=== PATIENT | female | born 1955 | race Caucasian/White ===

== ENCOUNTER → 2017-03-16 | Outpatient (CLI) | payer BC ==
[~2017-03-16] MED LIST: ALMO1TAB PO; AMLO2.5T PO; AMT25 PO; ASPI-435 PO; ATV5X PO; CHOL2000 PO; ERGO500037 PO; ESOM1CAP34 PO; FLNIN/ NAE; LACT1CAP6 PO; LEVO25TA PO; LPT10 PO; MAGN500T15 PO; MECL1TAB40 PO; NXM/40 PO; ONDA4TAB10 UT; SYN50 PO; TOPI50TA24 PO; TRIA37.5 PO; ZLF/50 PO; ZOLP5TAB PO; [UNRECOGNIZED DRUG - CODE] PO
[2017-03-16 08:19] LABS: HEMATOCRIT 44.3 % (37-47); MEAN CELL VOLUME 86.5 fL (80-100); MEAN CORPUSCULAR HEMOGLOBIN 29.5 pg (25-34); MEAN CORPUSCULAR HGB CONC 34.1 g/dl (32-36); MEAN PLATELET VOLUME 8.5 fL (7.4-10.4); PLATELET COUNT 104 K/uL (130-400); RED BLOOD COUNT 5.12 M/uL (4.2-5.4); WHITE BLOOD COUNT 3.92 K/uL (4.8-10.8)
[2017-03-16 08:50] LABS: ALT/SGPT 26 U/L (12-78); BLOOD UREA NITROGEN 15 mg/dl (7-18); BUN/CREATININE RATIO 17.2 (10-20); CARBON DIOXIDE 34 mmol/L (21-32); CHLORIDE 103 mmol/L (98-107); CHOLESTEROL 175 mg/dl (0-200); CREATININE 0.88 mg/dl (0.60-1.20); GLUCOSE 95 mg/dl (70-99); POTASSIUM 3.9 mmol/L (3.5-5.1); SODIUM 141 mmol/L (136-145); TRIGLYCERIDES 80 mg/dl (0-150); VERY LOW DENSITY LIPOPROT CALC 16 mg/dl
[2017-03-16 08:56] LABS: CALCIUM 8.5 mg/dl (8.5-10.1)
[2017-03-16 09:00] LABS: ALB/GLOB RATIO 1.2 (0.9-2); ALKALINE PHOSPHATASE 117 U/L (45-117); AST/SGOT 21 U/L (15-37); CHOLESTEROL/HDL RATIO 2.1; HDL CHOLESTEROL 84 mg/dl; LDL CHOLESTEROL CALCULATED 75 mg/dl
== END | disposition home or self-care (01) ==
LOC: C.LAB 07:58
PROVIDERS: ATTEND Internal Medicine
DX: E78.5 Hyperlipidemia, unspecified (principal); I10 Essential (primary) hypertension; K21.9 Gastro-esophageal reflux disease without esophagitis; E03.9 Hypothyroidism, unspecified

== ENCOUNTER → 2017-05-21 | Outpatient (CLI) | payer BC ==
[2017-05-21 16:38] LABS: HEMATOCRIT 41.9 % (37-47); MEAN CELL VOLUME 84.8 fL (80-100); MEAN CORPUSCULAR HEMOGLOBIN 29.8 pg (25-34); MEAN CORPUSCULAR HGB CONC 35.1 g/dl (32-36); RED BLOOD COUNT 4.94 M/uL (4.2-5.4); WHITE BLOOD COUNT 2.44 K/uL (4.8-10.8)
[2017-05-21 17:05] LABS: MEAN PLATELET VOLUME 8.9 fL (7.4-10.4); PLATELET COUNT 99 K/uL (130-400)
[2017-05-21 17:41] LABS: BASO % 1.6 %; BASO ABS # 0.04 K/uL (0-0.2); COMPLETE YES; EOS % 2.9 %; IG% 0.4 %; LYMPH % 41.4 %; LYMPH ABS # 1.01 K/uL (1.2-3.4); MONO % 9.8 %; NEUT % 43.9 %
[2017-05-21 19:36] LABS: LYME DISEASE AB IGG NEG (NEG); LYME DISEASE AB IGM NEG (NEG)
[2017-05-28 18:21] LABS: ANTI-68 kd Ag (HSP-70 Ab) NEGATIVE (NEGATIVE)
== END | disposition home or self-care (01) ==
LOC: C.LAB 15:05
PROVIDERS: ATTEND Physician Assistant
DX: H91.22 Sudden idiopathic hearing loss, left ear (principal)

== ENCOUNTER → 2017-05-30 | Outpatient (CLI) | payer BC ==
[~2017-05-30] MED LIST changes: +GADAVIST IV PRN
--- NOTE | 2017-05-30 15:46 | DIAGNOSTIC IMAGING REPORT ---
BRAIN COMBO FOR IAC CLINICAL HISTORY: Acute left sided sensorineural hearing loss. COMPARISON STUDY: No previous studies for comparison. TECHNIQUE: Utilizing 1.5 Luba magnet and dedicated coil, multiplanar, multi echo imaging of the brain was performed pre and postcontrast administration with thin cut imaging through the internal auditory canals. Injection of 7.5 cc of Gadavist IV was uneventful. FINDINGS: There are no areas of restricted diffusion. No acute intracranial hemorrhage, midline shift or mass effect is present. Brain volume is normal. Ventricular system is normal. Basilar cisterns are patent. There are no extra-axial collections. Flow-voids for the major intracranial vessels are present. There is no intracranial mass or pathologic enhancement. No abnormalities are identified within the internal auditory canals. Semicircular canals are intact. There is no fluid within the mastoid air cells. A punctate focus of signal abnormality within the left temporal lobe is of doubtful significance. Calvarial signal is maintained. Orbits and sinuses are unremarkable. IMPRESSION: Unremarkable MRI of the brain and internal auditory canals. Electronically signed by: Michael Echevarria M.D. 05/30/2017 3:45 PM Dictated Date/Time: 05/30/2017 3:38 PM
== END | disposition home or self-care (01) ==
LOC: C.MRIBC 13:03
PROVIDERS: ATTEND Physician Assistant
DX: H91.22 Sudden idiopathic hearing loss, left ear (principal)

== ENCOUNTER → 2017-06-01 | Outpatient (CLI) | payer BC ==
[~2017-06-01] MED LIST changes: -GADAVIST IV PRN
== END | disposition home or self-care (01) ==
LOC: C.LAB 13:58
PROVIDERS: ATTEND Internal Medicine
DX: Z00.00 Encounter for general adult medical examination without abnormal findings (principal); D69.6 Thrombocytopenia, unspecified; Z11.59 Encounter for screening for other viral diseases

== ENCOUNTER 2017-06-03 16:08 | Emergency (ER) | payer BC ==
[~2017-06-03] VITALS: Ht 160 cm; Wt 78.7 kg
[~2017-06-03 16:08] MED LIST changes: -AMT25 PO; -ATV5X PO; -CHOL2000 PO; -ESOM1CAP34 PO; -FLNIN/ NAE; -LPT10 PO; -MECL1TAB40 PO; -ONDA4TAB10 UT; -SYN50 PO; -TRIA37.5 PO; -ZLF/50 PO; -[UNRECOGNIZED DRUG - CODE] PO
[2017-06-03] MEDS ORDERED: SODIUM CHLORIDE 0.9% 1000ML 1,000 ML IV STA (16:58)
--- NOTE | 2017-06-03 17:02 | EMERGENCY ROOM VISIT NOTE ---
History Report prepared by Vivek: Chucky Jean Under the Supervision of: Dr. Kunal Polo M.D. First contact with patient: 16:48 Chief Complaint: ILLNESS Stated Complaint: WHOOZY,SHAKY,RACING HEART,HIGH BP History of Present Illness The patient is a 61 year old female who presents to the Emergency Room with complaints of malaise that began a couple of days ago. The patient recently finished a course of Prednisone for a cochlear issue. She started taking Hydrochlorothiazide 2 days ago as well. She was tested for Lyme disease 1 week ago which was negative. She describes her malaise as everything being in slow motion and feeling weak. She experienced palpitations today with a blood pressure of 170/104. She has a history of a low platelet condition and saw her [employer] 3 years ago who diagnosed her with fibromyalgia. She denies any abdominal pain. Source of History: patient Onset: a couple of days ago Position: other (global) Symptom Intensity: moderate Quality: other (Malaise) Timing: constant Associated Symptoms: + weakness, No abdominal pain Review of Systems See HPI for pertinent positives & negatives. A total of 10 systems reviewed and were otherwise negative. Past Medical & Surgical Medical Problems: (1) Fibromyalgia Family History Omitted secondary to the patient's age. Social History Smoking Status: Never Smoker Smokeless Tobacco Use: No Drug Use: none Marital Status: Housing Status: lives with significant other Occupation Status: retired Current/Historical Medications Scheduled Amitriptyline HCl (Amitriptyline HCl), 25 MG PO HS Amlodipine Besylate (Norvasc), 2.5 MG PO QAM Aspirin (Aspirin 81), 81 MG PO QAM Atorvastatin (Atorvastatin Calcium), 10 MG PO 5XWK Cholecalciferol (Vitamin D3), 2,000 INTER.UNIT PO DAILY Esomeprazole Magnesium (Esomeprazole Magnesium), 40 MG PO HS Levothyroxine Sodium (Synthroid), 50 MCG PO DAILY Magnesium (Magnesium), 500 MG PO QAM Sertraline HCl (Sertraline HCl), 50 MG PO HS Triamterene/Hctz (Dyazide 37.5MG/25MG), 1 CAP PO DAILY Scheduled PRN Almotriptan Malate (Almotriptan), 12.5 MG PO UD PRN for Migraine Fluticasone Propionate (Fluticasone Propionate), 1 SPRAY LAZARO BID PRN for Allergy Symptoms Lorazepam (Lorazepam), 0.5 MG PO Q6H PRN for Anxiety Meclizine HCl (Meclizine HCl), 12.5-25 MG PO Q8 PRN for Dizziness or Vertigo Ondasetron Odt (Zofran Odt), 4 MG UT Q8 PRN for Nausea Allergies Coded Allergies: Gabapentin (Verified Allergy, Intermediate, twitching, 06/03/17) Codeine (Verified Allergy, Mild, gets very sick, 06/03/17) Physical Exam Vital Signs Date Time Temp Pulse Resp B/P (MAP) Pulse Ox O2 Delivery O2 Flow Rate FiO2 06/03/17 20:07 36.7 68 18 156/93 97 06/03/17 19:10 68 20 179/90 97 Room Air 06/03/17 19:07 97 Room Air 06/03/17 16:10 36.7 75 18 173/95 97 Room Air Physical Exam GENERAL: Patient is a healthy-appearing well-nourished female HEAD: Normocephalic atraumatic EYES: Ocular movements intact pupils equal and react to light OROPHARYNX mucous membranes are moist no exudates present no erythema or edema present NECK: Supple no nuchal rigidity CHEST: Good equal expansion LUNGS: Clear and equal to auscultation CARDIAC: Normal S1 and S2 ABDOMEN: Soft nontender no guarding BACK: No CVA tenderness EXTREMITIES: No pain upon palpation normal muscle strength in all groups no clubbing cyanosis or edema NEURO: Patient is following commands and answering questions appropriately. Alert and oriented x3 Cranial Nerves 2-12 grossly intact Medical Decision & Procedures ER Provider Diagnostic Interpretation: Radiology results as stated below per my review and radiologist interpretation: CHEST ONE VIEW PORTABLE HISTORY: 61 years-old Female Pt c/o gen weakness COMPARISON: None available TECHNIQUE: Portable upright AP view of the chest FINDINGS: Cardiac silhouette is within normal limits. No pneumothorax, pleural effusion, focal airspace consolidation or overt pulmonary edema. The bones appear grossly intact. IMPRESSION: No acute cardiopulmonary process. The above report was generated using voice recognition software. It may contain grammatical, syntax or spelling errors. Electronically signed by: Cj Montaño M.D. 06/03/2017 5:29 PM Dictated Date/Time: 06/03/2017 5:29 PM Laboratory Results 06/03/17 17:15 Red Blood Count 5.38, Mean Corpuscular Volume 85.5, Mean Corpuscular Hemoglobin 29.4, Mean Corpuscular Hemoglobin Concent 34.3, Mean Platelet Volume 8.2, Neutrophils (%) (Auto) 52.1, Lymphocytes (%) (Auto) 38.2, Monocytes (%) (Auto) 7.5, Eosinophils (%) (Auto) 1.7, Basophils (%) (Auto) 0.1, Neutrophils # (Auto) 3.76, Lymphocytes # (Auto) 2.76, Monocytes # (Auto) 0.54, Eosinophils # (Auto) 0.12, Basophils # (Auto) 0.01 06/03/17 17:15 Test 06/03/17 17:15 06/03/17 19:00 White Blood Count 7.22 K/uL (4.8-10.8) Red Blood Count 5.38 M/uL (4.2-5.4) Hemoglobin 15.8 g/dL (12.0-16.0) Hematocrit 46.0 % (37-47) Mean Corpuscular Volume 85.5 fL (80-100) Mean Corpuscular Hemoglobin 29.4 pg (25-34) Mean Corpuscular Hemoglobin Concent 34.3 g/dl (32-36) Platelet Count 107 K/uL (130-400) Mean Platelet Volume 8.2 fL (7.4-10.4) Neutrophils (%) (Auto) 52.1 % Lymphocytes (%) (Auto) 38.2 % Monocytes (%) (Auto) 7.5 % Eosinophils (%) (Auto) 1.7 % Basophils (%) (Auto) 0.1 % Neutrophils # (Auto) 3.76 K/uL (1.4-6.5) Lymphocytes # (Auto) 2.76 K/uL (1.2-3.4) Monocytes # (Auto) 0.54 K/uL (0.11-0.59) Eosinophils # (Auto) 0.12 K/uL (0-0.5) Basophils # (Auto) 0.01 K/uL (0-0.2) RDW Standard Deviation 39.6 fL (36.4-46.3) RDW Coefficient of Variation 12.7 % (11.5-14.5) Immature Granulocyte % (Auto) 0.4 % Immature Granulocyte # (Auto) 0.03 K/uL (0.00-0.02) Anion Gap 7.0 mmol/L (3-11) Est Creatinine Clear Calc Drug Dose 64.5 ml/min Estimated GFR () 78.9 Estimated GFR (Non- 68.1 BUN/Creatinine Ratio 17.0 (10-20) Calcium Level 9.0 mg/dl (8.5-10.1) Magnesium Level 2.1 mg/dl (1.8-2.4) Total Bilirubin 0.6 mg/dl (0.2-1) Direct Bilirubin 0.2 mg/dl (0-0.2) Aspartate Amino Transf (AST/SGOT) 19 U/L (15-37) Alanine Aminotransferase (ALT/SGPT) 34 U/L (12-78) Alkaline Phosphatase 145 U/L (45-117) Total Creatine Kinase 117 U/L (26-192) Creatine Kinase MB 2.2 ng/ml (0.5-3.6) Creatine Kinase MB Ratio 1.9 (0-3.0) Troponin I < 0.015 ng/ml (0-0.045) Total Protein 6.6 gm/dl (6.4-8.2) Albumin 3.6 gm/dl (3.4-5.0) Thyroid Stimulating Hormone (TSH) 2.440 uIu/ml (0.300-4.500) Monoscreen NEG (NEG) Urine Color YELLOW Urine Appearance CLEAR (CLEAR) Urine pH 7.5 (4.5-7.5) Urine Specific [place] 1.012 (1.000-1.030) Urine Protein NEG (NEG) Urine Glucose (UA) NEG (NEG) Urine Ketones NEG (NEG) Urine Occult Blood NEG (NEG) Urine Nitrite NEG (NEG) Urine Bilirubin NEG (NEG) Urine Urobilinogen NEG (NEG) Urine Leukocyte Esterase NEG (NEG) Urine Random Sodium 17 mEq/L Urine Random Potassium 13.5 mEq/L Urine Random Chloride 20 mEq/L Labs reviewed by ED physician. Medications Administered Medications (Trade) Dose Ordered Sig/Rip Route Start Time Stop Time Status Last Admin Dose Admin Sodium Chloride 1,000 ml @ 999 mls/hr Q1H1M STAT IV 06/03/17 16:58 06/03/17 17:58 DC 06/03/17 16:58 999 MLS/HR Potassium Chloride (Klor-Con M10) 80 meq NOW STAT PO 06/03/17 17:51 06/03/17 17:52 DC 06/03/17 19:05 80 MEQ ECG Indication: weakness Rate (beats per minute): 64 Rhythm: normal sinus Findings: no acute ischemic change, no ectopy ED Course 1648: Past medical records reviewed. The patient was evaluated in room B7. A complete history and physical examination was performed. 1658: Ordered Sodium Chloride 1000 ml @ 999 mls/hr IV 1751: Ordered Potassium Chloride 80 meq PO 1909: Upon reexamination the patient is resting. I discussed results and treatment plan with the patient. She verbalizes agreement and understanding. The patient is ready for discharge. Medical Decision Differential diagnosis: Etiologies such as metabolic, infection, hypo/hyperglycemia, electrolyte abnormalities, cardiac sources, intracerebral event, toxicologic, neurologic, as well as others were entertained. This is a 61-year-old female who presents emergency department complaining of generalized weakness. The patient has a hypochloremic metabolic alkalosis on laboratory work. In addition she also is hypertensive and has hypokalemia. I believe these findings are all explained by starting hydrochlorothiazide 3 days ago. The patient's potassium was repleted in the emergency department and I stressed the need to stop the hydrochlorothiazide to the patient. I also discussed these findings with the pharmacist who agreed. I believe this also explains the patient's symptoms. Patient was in agreement with the treatment plan. Medication Reconcilliation Current Medication List: was personally reviewed by me Blood Pressure Screening Patient's blood pressure: Elevated blood pressure Blood pressure disposition: Referred to PCP Impression Primary Impression: Hydrochlorothiazide adverse reaction Additional Impression: Hypokalemia Scribe Attestation The scribe's documentation has been prepared under my direction and personally reviewed by me in its entirety. I confirm that the note above accurately reflects all work, treatment, procedures, and medical decision making performed by me. Departure Information Dispostion Home / Self-Care Referrals Kell Echevarria M.D. (PCP) Forms HOME CARE DOCUMENTATION FORM, IMPORTANT VISIT INFORMATION, WORK / SCHOOL INSTRUCTIONS Patient Instructions Chloride Urine, My [facility] [email or web address] Additional Instructions STOP taking hydrochlorothiazide Follow-up with Dr Echevarria's office You were found to have an elevated blood pressure today (>120 sytolic or >90 diastolic). Per medicare guidelines, you need to follow up with this blood pressure screening with your Primary Care Physician (PCP). For a new PCP call [phone]. You have been examined and treated today on an emergency basis only. This is not a substitute for, or an effort to provide, complete comprehensive medical care. It is impossible to recognize and treat all injuries or illnesses in a single emergency department visit. It is therefore important that you follow up closely with Dr Echevarria. Call as soon as possible for an appointment. Thank you for your time and consideration. I look forward to speaking with you again soon. Please don't hesitate to call us if you have any questions. Problem Qualifiers Primary Impression: Hydrochlorothiazide adverse reaction Encounter type: initial encounter Qualified Codes: T50.2X5A - Adverse effect of carbonic-anhydrase inhibitors, benzothiadiazides and other diuretics, initial encounter
[2017-06-03 17:29] LABS: BASO % 0.1 %; BASO ABS # 0.01 K/uL (0-0.2); COMPLETE YES; EOS % 1.7 %; IG% 0.4 %; LYMPH % 38.2 %; LYMPH ABS # 2.76 K/uL (1.2-3.4); MEAN CELL VOLUME 85.5 fL (80-100); MEAN CORPUSCULAR HEMOGLOBIN 29.4 pg (25-34); MEAN CORPUSCULAR HGB CONC 34.3 g/dl (32-36); MEAN PLATELET VOLUME 8.2 fL (7.4-10.4); MONO % 7.5 %; NEUT % 52.1 %; PLATELET COUNT 107 K/uL (130-400); RED BLOOD COUNT 5.38 M/uL (4.2-5.4); WHITE BLOOD COUNT 7.22 K/uL (4.8-10.8)
--- NOTE | 2017-06-03 17:31 | DIAGNOSTIC IMAGING REPORT ---
CHEST ONE VIEW PORTABLE HISTORY: 61 years-old Female Pt c/o gen weakness COMPARISON: None available TECHNIQUE: Portable upright AP view of the chest FINDINGS: Cardiac silhouette is within normal limits. No pneumothorax, pleural effusion, focal airspace consolidation or overt pulmonary edema. The bones appear grossly intact. IMPRESSION: No acute cardiopulmonary process. The above report was generated using voice recognition software. It may contain grammatical, syntax or spelling errors. Electronically signed by: Cj Montaño M.D. 06/03/2017 5:29 PM Dictated Date/Time: 06/03/2017 5:29 PM
[2017-06-03 17:46] LABS: ALT/SGPT 34 U/L (12-78); BLOOD UREA NITROGEN 16 mg/dl (7-18); CARBON DIOXIDE 34 mmol/L (21-32); CHLORIDE 90 mmol/L (98-107); CREATININE 0.91 mg/dl (0.60-1.20); GLUCOSE 93 mg/dl (70-99); MAGNESIUM 2.1 mg/dl (1.8-2.4); SODIUM 131 mmol/L (136-145)
[2017-06-03] MEDS ORDERED: POTASSIUM CHLORIDE 10 MEQ TABCR PO STA (17:51)
[2017-06-03 17:57] LABS: ALKALINE PHOSPHATASE 145 U/L (45-117); AST/SGOT 19 U/L (15-37); CKMB/CK RATIO 1.9 (0-3.0)
[2017-06-03] MEDS ORDERED: ONDA4TAB10 UT (17:58)
[2017-06-03] MEDS ORDERED: ATV5X PO (17:58)
[2017-06-03] MEDS ORDERED: FLNIN/ NAE (17:58)
[2017-06-03] MEDS ORDERED: [UNRECOGNIZED DRUG - CODE] PO (17:58)
[2017-06-03] MEDS ORDERED: SYN50 PO (17:58)
[2017-06-03] MEDS ORDERED: TRIA37.5 PO (17:58)
[2017-06-03] MEDS ORDERED: MECL1TAB40 PO (17:58)
[2017-06-03] MEDS ORDERED: ESOM1CAP34 PO (17:58)
[2017-06-03] MEDS ORDERED: LPT10 PO (17:58)
[2017-06-03] MEDS ORDERED: ZLF/50 PO (17:58)
[2017-06-03] MEDS ORDERED: AMT25 PO (17:58)
[2017-06-03] MEDS ORDERED: CHOL2000 PO (18:00)
[2017-06-03 19:07] VITALS: O2SAT 97; Ht 160 cm; Wt 78.7 kg
[2017-06-03 19:30] LABS: URINE APPEARANCE CLEAR (CLEAR); URINE BILIRUBIN NEG (NEG); URINE COLOR YELLOW; URINE NITRITE NEG (NEG); URINE PH 7.5 (4.5-7.5); URINE SPECIFIC GRAVITY 1.012 (1.000-1.030); UROBILINOGEN NEG (NEG); ZZUR CULT IF INDIC CLEAN CATCH NO
[2017-06-03 19:34] LABS: MANUAL MICROSCOPIC REQUIRED? NO; REVIEW REQ? NO
[2017-06-03 20:07] VITALS: BP 156/93; PULSE 68; TEMP 36.7; O2SAT 97
[2017-06-13 23:33] LABS: EBV EARLY ANTIGEN AB >150.00 U/ML; EHRLICHIA CHAFF IGG AB <1:64 (<1:64); EHRLICHIA CHAFF IGM AB <1:20 (<1:20)
== END 2017-06-03 20:08 | disposition home or self-care (01) ==
LOC: C.EDB 16:09
DX: E87.6 Hypokalemia (principal); T50.2X5A Adverse effect of carbonic-anhydrase inhibitors, benzothiadiazides and other diuretics, initial encounter; E87.3 Alkalosis; R53.81 Other malaise; M79.7 Fibromyalgia; Z79.82 Long term (current) use of aspirin; Z79.899 Other long term (current) drug therapy; I10 Essential (primary) hypertension

== ENCOUNTER → 2017-06-21 | Outpatient (CLI) | payer BC ==
[~2017-06-21] MED LIST changes: -ALMO1TAB PO; +AMT25 PO; +ATV5X PO; +CHOL2000 PO; -ERGO500037 PO; +ESOM1CAP34 PO; +FLNIN/ NAE; -LACT1CAP6 PO; -LEVO25TA PO; +LPT10 PO; +MECL1TAB40 PO; -NXM/40 PO; +ONDA4TAB10 UT; +SYN50 PO; -TOPI50TA24 PO; +TRIA37.5 PO; +ZLF/50 PO; -ZOLP5TAB PO; +[UNRECOGNIZED DRUG - CODE] PO
[2017-06-21 15:08] LABS: BLOOD UREA NITROGEN 12 mg/dl (7-18); C-REACTIVE PROTEIN < 0.29 mg/dl (0-0.29); CALCIUM 8.8 mg/dl (8.5-10.1); CARBON DIOXIDE 34 mmol/L (21-32); CHLORIDE 100 mmol/L (98-107); CREATININE 0.82 mg/dl (0.60-1.20); GLUCOSE 74 mg/dl (70-99); POTASSIUM 3.8 mmol/L (3.5-5.1); SODIUM 137 mmol/L (136-145)
== END | disposition home or self-care (01) ==
LOC: C.LAB 12:49
PROVIDERS: ATTEND Internal Medicine
DX: I10 Essential (primary) hypertension (principal); R21 Rash and other nonspecific skin eruption; H81.09 Meniere's disease, unspecified ear; D69.2 Other nonthrombocytopenic purpura

== ENCOUNTER → 2017-06-27 | Outpatient (CLI) | payer BC ==
[2017-06-27 16:39] LABS: URINE APPEARANCE CLEAR (CLEAR); URINE BILIRUBIN NEG (NEG); URINE COLOR YELLOW; URINE NITRITE NEG (NEG); URINE SPECIFIC GRAVITY 1.013 (1.000-1.030); UROBILINOGEN NEG (NEG)
[2017-06-27 16:41] LABS: MANUAL MICROSCOPIC REQUIRED? NO; REVIEW REQ? YES
[2017-06-27 16:50] LABS: URINE EPITHELIAL CELL AUTO 0-5 /lpf (0-5)
[2017-06-27 17:09] LABS: RHEUMATOID FACTOR < 10.0 U/mL (0-15); TOTAL IRON BINDING CAPACITY 410 mcg/dl (250-450)
[2017-07-03 02:34] LABS: ANTI-CENTROMERE AB <1.0 NEG AI (<1.0 NEG); ANTI-SS-A <1.0 NEG AI (<1.0 NEG); ANTI-SS-B <1.0 NEG AI (<1.0 NEG); DNA ds CRITHIDIA NEGATIVE (NEGATIVE); MICROSOMAL AB 2 IU/ML (<9); PARVOVIRUS IgG INDEX 7.4 (<0.9); PARVOVIRUS IgM INDEX 0.2 (<0.9); Sm Antibody <1.0 NEG AI (<1.0 NEG)
== END | disposition home or self-care (01) ==
LOC: C.LAB1850 15:43
PROVIDERS: ATTEND Internal Medicine Rheumatology
DX: R21 Rash and other nonspecific skin eruption (principal); M19.90 Unspecified osteoarthritis, unspecified site; H90.42 Sensorineural hearing loss, unilateral, left ear, with unrestricted hearing on the contralateral side; M79.642 Pain in left hand

== ENCOUNTER → 2017-07-18 | Outpatient (CLI) | payer BC ==
[2017-07-18 17:28] LABS: BLOOD UREA NITROGEN 16 mg/dl (7-18); BUN/CREATININE RATIO 16.6 (10-20); CALCIUM 8.7 mg/dl (8.5-10.1); CARBON DIOXIDE 31 mmol/L (21-32); CHLORIDE 103 mmol/L (98-107); CREATININE 0.97 mg/dl (0.60-1.20); GLUCOSE 91 mg/dl (70-99); POTASSIUM 3.8 mmol/L (3.5-5.1); SODIUM 140 mmol/L (136-145)
== END | disposition home or self-care (01) ==
LOC: C.LAB 15:37
PROVIDERS: ATTEND Internal Medicine
DX: I10 Essential (primary) hypertension (principal)

== ENCOUNTER → 2017-07-29 | Outpatient (CLI) | payer BC ==
[2017-07-29 19:30] LABS: SYNOVIAL FLUID APPEARANCE CLEAR; SYNOVIAL FLUID COLOR YELLOW; SYNOVIAL FLUID MONONUC RELAT 96.8 %; SYNOVIAL FLUID POLYNUC RELAT 3.2 %
[2017-08-01 17:32] LABS: LYME DNA PCR CSF OR SYNOVIAL Not detected (Not Detected); LYME DNA SOURCE Synovial Fluid
== END | disposition home or self-care (01) ==
LOC: C.LABSPEC 17:33
PROVIDERS: ATTEND Orthopaedic Surgery
DX: M25.462 Effusion, left knee (principal)

== ENCOUNTER → 2017-08-21 | Outpatient (CLI) | payer BC ==
[2017-08-21 09:38] LABS: BASO % 0.7 %; BASO ABS # 0.02 K/uL (0-0.2); COMPLETE YES; HEMATOCRIT 42.4 % (37-47); LYMPH % 38.6 %; LYMPH ABS # 1.17 K/uL (1.2-3.4); MEAN CELL VOLUME 85.7 fL (80-100); MEAN CORPUSCULAR HEMOGLOBIN 29.9 pg (25-34); MEAN CORPUSCULAR HGB CONC 34.9 g/dl (32-36); MEAN PLATELET VOLUME 8.8 fL (7.4-10.4); MONO % 8.9 %; NEUT % 47.8 %; PLATELET COUNT 109 K/uL (130-400); RED BLOOD COUNT 4.95 M/uL (4.2-5.4); WHITE BLOOD COUNT 3.03 K/uL (4.8-10.8)
[2017-08-21 09:57] LABS: ALT/SGPT 23 U/L (12-78); BLOOD UREA NITROGEN 11 mg/dl (7-18); BUN/CREATININE RATIO 13.5 (10-20); CARBON DIOXIDE 33 mmol/L (21-32); CHLORIDE 103 mmol/L (98-107); CHOLESTEROL 175 mg/dl (0-200); CREATININE 0.82 mg/dl (0.60-1.20); GLUCOSE 90 mg/dl (70-99); POTASSIUM 4.2 mmol/L (3.5-5.1); SODIUM 141 mmol/L (136-145); TRIGLYCERIDES 85 mg/dl (0-150); VERY LOW DENSITY LIPOPROT CALC 17 mg/dl
[2017-08-21 10:00] LABS: ALB/GLOB RATIO 1.3 (0.9-2); ALKALINE PHOSPHATASE 134 U/L (45-117); AST/SGOT 21 U/L (15-37); CHOLESTEROL/HDL RATIO 1.9; HDL CHOLESTEROL 90 mg/dl; LDL CHOLESTEROL CALCULATED 68 mg/dl
== END | disposition home or self-care (01) ==
LOC: C.LAB 07:14
PROVIDERS: ATTEND Internal Medicine
DX: Z00.00 Encounter for general adult medical examination without abnormal findings (principal); I10 Essential (primary) hypertension; E78.5 Hyperlipidemia, unspecified; D69.3 Immune thrombocytopenic purpura

== ENCOUNTER → 2017-09-27 | Outpatient (CLI) | payer BC ==
[~2017-09-27] MED LIST changes: +LOSA1TAB PO; +MECL1TAB42 PO; +POTA10CA28 PO; +TRAM-10 PO
[2017-09-27 13:04] LABS: POTASSIUM 3.5 mmol/L (3.5-5.1)
== END | disposition home or self-care (01) ==
LOC: C.LAB1850 10:40
PROVIDERS: ATTEND Specialist
DX: H91.8X2 Other specified hearing loss, left ear (principal)

== ENCOUNTER → 2017-09-27 | Outpatient (CLI) | payer BC ==
--- NOTE | 2017-09-27 15:32 | MAMMOGRAPHY REPORT ---
BILATERAL DIGITAL SCREENING MAMMOGRAM TOMOSYNTHESIS WITH CAD: 09/27/2017 CLINICAL HISTORY: Routine screening. Patient has no complaints. TECHNIQUE: Breast tomosynthesis in addition to standard 2D mammography was performed. Current study was also evaluated with a Computer Aided Detection (CAD) system. COMPARISON: Prior outside mammograms dated 09/18/2014, 09/09/2013, 08/19/2012, 08/16/2011 from [facility]. BREAST COMPOSITION: There are scattered areas of fibroglandular density in both breasts. FINDINGS: No suspicious masses, calcifications, or areas of architectural distortion are noted in ei ther breast. There has been no significant interval change compared to prior exams. IMPRESSION: ACR BI-RADS CATEGORY 1: NEGATIVE There is no mammographic evidence of malignancy. A 1 year screening mammogram is recommended. The pa tient will receive written notification of the results. Approximately 10% of breast cancers are not detected with mammography. A negative mammographic report should not delay biopsy if a clinically suggestive mass is present. Mirtha Klein M.D. ah/:09/27/2017 15:00:01 [employer] Display Builder: Noemy VENEGAS(Santosh)(Ganga)([place]), [facility] letter sent: Normal 1/2 BI-RADS Code: ACR BI-RADS Category 1: Negative
== END | disposition home or self-care (01) ==
LOC: C.MAMM 10:53
PROVIDERS: ATTEND Internal Medicine
DX: Z12.31 Encounter for screening mammogram for malignant neoplasm of breast (principal)

== ENCOUNTER → 2017-10-14 | Outpatient (CLI) | payer BC ==
[~2017-10-14] MED LIST changes: -LOSA1TAB PO; -MECL1TAB42 PO; -POTA10CA28 PO; -TRAM-10 PO
[2017-10-14 17:19] LABS: BLOOD UREA NITROGEN 15 mg/dl (7-18); CARBON DIOXIDE 34 mmol/L (21-32); GLUCOSE 109 mg/dl (70-99); POTASSIUM 4.1 mmol/L (3.5-5.1); SODIUM 137 mmol/L (136-145)
== END | disposition home or self-care (01) ==
LOC: C.LABBC 13:58
PROVIDERS: ATTEND Internal Medicine
DX: I10 Essential (primary) hypertension (principal); E87.6 Hypokalemia

== ENCOUNTER → 2017-10-29 | Outpatient (CLI) | payer BC ==
--- NOTE | 2017-10-29 09:15 | DIAGNOSTIC IMAGING REPORT ---
LEFT KNEE MRI HISTORY: LT KNEE PAIN COMPARISON STUDY: None. TECHNIQUE: Multiplanar multisequence MRI of the left knee was performed according to standard department protocol without the use of contrast. FINDINGS: Menisci: There is an oblique tear extending to the undersurface of the body and posterior horn of the medial meniscus. Partial discoid lateral meniscus. However, the lateral meniscus appears intact. Ligaments: The anterior and posterior cruciate ligaments are intact. The medial and lateral collateral ligaments are normal in appearance. Extensor mechanism: The quadriceps tendon and patellar ligament are intact. Articular cartilage and bone: No fracture or dislocation within the knee. Normal marrow signal intensity seen throughout the visualized osseous structures. Mild cartilage thinning within the medial femoral condyle. The remaining cartilage spaces are maintained. Joint effusion: None. Soft tissues: A 6.6 x 2.0 x 0.9 cm popliteal cyst. IMPRESSION: 1. Oblique tear extending to the undersurface of the body and posterior horn of the medial meniscus. 2. Partial discoid lateral meniscus. However, the lateral meniscus appears intact. 3. Small popliteal cyst. Electronically signed by: Miguel Blue M.D. 10/29/2017 9:13 AM Dictated Date/Time: 10/29/2017 9:07 AM
== END | disposition home or self-care (01) ==
LOC: C.MRIBC 08:05
PROVIDERS: ATTEND Orthopaedic Surgery
DX: S83.242A Other tear of medial meniscus, current injury, left knee, initial encounter (principal); X58.XXXA Exposure to other specified factors, initial encounter; Q68.6 Discoid meniscus; M71.22 Synovial cyst of popliteal space [Baker], left knee

== ENCOUNTER → 2017-10-29 | Outpatient (CLI) | payer BC ==
[2017-10-29 14:51] LABS: BLOOD UREA NITROGEN 14 mg/dl (7-18); CALCIUM 9.3 mg/dl (8.5-10.1); CARBON DIOXIDE 36 mmol/L (21-32); CREATININE 0.83 mg/dl (0.60-1.20); GLUCOSE 84 mg/dl (70-99); POTASSIUM 3.8 mmol/L (3.5-5.1); SODIUM 138 mmol/L (136-145)
== END | disposition home or self-care (01) ==
LOC: C.LABBC 09:15
PROVIDERS: ATTEND Internal Medicine
DX: I10 Essential (primary) hypertension (principal); E87.6 Hypokalemia

== ENCOUNTER → 2017-11-11 | Outpatient (CLI) | payer BC ==
[2017-11-11 14:06] LABS: BLOOD UREA NITROGEN 14 mg/dl (7-18); CALCIUM 9.4 mg/dl (8.5-10.1); CARBON DIOXIDE 36 mmol/L (21-32); CREATININE 0.86 mg/dl (0.60-1.20); GLUCOSE 97 mg/dl (70-99); SODIUM 135 mmol/L (136-145)
== END | disposition home or self-care (01) ==
LOC: C.LAB 10:24
PROVIDERS: ATTEND Internal Medicine
DX: E87.6 Hypokalemia (principal)

== ENCOUNTER → 2017-12-25 | Outpatient (CLI) | payer BC ==
[2017-12-25 14:58] LABS: BLOOD UREA NITROGEN 17 mg/dl (7-18); CARBON DIOXIDE 35 mmol/L (21-32); CREATININE 0.85 mg/dl (0.60-1.20); GLUCOSE 80 mg/dl (70-99); POTASSIUM 3.3 mmol/L (3.5-5.1); SODIUM 135 mmol/L (136-145)
== END | disposition home or self-care (01) ==
LOC: C.LAB 13:31
PROVIDERS: ATTEND Internal Medicine
DX: E87.6 Hypokalemia (principal)

== ENCOUNTER → 2018-01-08 | Outpatient (CLI) | payer BC ==
[2018-01-08 13:13] LABS: BLOOD UREA NITROGEN 15 mg/dl (7-18); CALCIUM 9.1 mg/dl (8.5-10.1); CARBON DIOXIDE 37 mmol/L (21-32); CREATININE 0.81 mg/dl (0.60-1.20); GLUCOSE 80 mg/dl (70-99); POTASSIUM 3.8 mmol/L (3.5-5.1); SODIUM 137 mmol/L (136-145)
== END | disposition home or self-care (01) ==
LOC: C.LAB 12:21
PROVIDERS: ATTEND Internal Medicine
DX: E87.6 Hypokalemia (principal)

== ENCOUNTER → 2018-04-25 | Outpatient (CLI) | payer BC ==
[~2018-04-25] MED LIST changes: +LOSA1TAB PO; +MECL1TAB42 PO; +POTA10CA28 PO
[2018-04-25 16:36] LABS: BASO % 0.4 %; BASO ABS # 0.02 K/uL (0-0.2); EOS % 2.2 %; HEMOGLOBIN 14.5 g/dL (12.0-16.0); IG# 0.01 K/uL (0.00-0.02); LYMPH ABS # 1.85 K/uL (1.2-3.4); MEAN CELL VOLUME 84.3 fL (80-100); MEAN CORPUSCULAR HEMOGLOBIN 29.1 pg (25-34); MEAN CORPUSCULAR HGB CONC 34.5 g/dl (32-36); MEAN PLATELET VOLUME 8.9 fL (7.4-10.4); MONO % 6.7 %; MONO ABS # 0.31 K/uL (0.11-0.59); NEUT % 50.5 %; NEUT ABS # 2.34 K/uL (1.4-6.5); PLATELET COUNT 125 K/uL (130-400); RED CELL DISTRIBUTION WIDTH CV 13.3 % (11.5-14.5); RED CELL DISTRIBUTION WIDTH SD 40.5 fL (36.4-46.3); WHITE BLOOD COUNT 4.63 K/uL (4.8-10.8)
[2018-04-25 17:02] LABS: POTASSIUM 3.4 mmol/L (3.5-5.1)
== END | disposition home or self-care (01) ==
LOC: C.CPL 15:20
PROVIDERS: ATTEND Orthopaedic Surgery
DX: Z01.818 Encounter for other preprocedural examination (principal); S83.242A Other tear of medial meniscus, current injury, left knee, initial encounter; X58.XXXA Exposure to other specified factors, initial encounter

== ENCOUNTER → 2018-05-27 | Day surgery (SDC) | payer BC ==
[2018-05-06 14:23] VITALS: Ht 160 cm; Wt 75.0 kg
[~2018-05-27] VITALS: Ht 160 cm; Wt 75.0 kg
[~2018-05-27] MED LIST changes: +ATROPINE SULFATE 0.1 MG/ML 5ML SYR IV PRN; +BUPIVACAINE 0.5 % 5 MG/1 ML PF 10ML VIAL ONE; +CEFAZOLIN 1000MG IV PUSH 7.5 ML IV SCH; +DEXAMETHASONE SOD INJ 4 MG/ML VIAL IV PRN; +DEXAMETHASONE SOD INJ 4 MG/ML VIAL ONE; +EpHEDrine SULFATE INJ 50 MG/ML AMP IV PRN; +EpINEphrine INJ 1MG/ML AMP 1 MG/ML AMP ONE; +FENTANYL CITRATE INJ 50 MCG/1 ML 2 ML VIAL IV PRN; +FENTANYL CITRATE INJ 50 MCG/1 ML 2 ML VIAL ONE; +KETOROLAC TROMETHAMINE 30 MG/ML VIAL IV. PRN; +KETOROLAC TROMETHAMINE 30 MG/ML VIAL ONE; +LABETALOL HCL IV 5 MG/ML 20ML IV PRN; +LACTATED RINGER'S 1000ML 1,000 ML IV SCH; +LIDOCAINE HCL 2% 2 ML VIAL (20MG/ML) ONE; -MECL1TAB40 PO; +METOCLOPRAMIDE HCL INJ 5 MG/ML 2 ML VIAL IV PRN; +MIDAZOLAM HCL 1 MG/ML 2ML VIAL ONE; +MoRPHine SULFATE 10 MG/ML CARP/VIAL IV PRN; +ONDANSETRON INJ 2 MG/ML 2 ML VIAL IV PRN; +ONDANSETRON INJ 2 MG/ML 2 ML VIAL ONE; +OXYCODONE/ACETAMINOPHEN 5-325 TAB PO PRN; +PHENYLEPHRINE 100MCG/ML 5ML SYR IV PRN; +PROPOFOL IV EMULSION 10 MG/ML 20 ML VIAL ONE; +ROPIVACAINE 0.5% 5 MG/ML 30 ML VIAL ONE; +SODIUM CHLORIDE 0.9% 1000ML 1,000 ML IV SCH; +TRAM-10 PO; -[UNRECOGNIZED DRUG - CODE] PO
--- NOTE | 2018-05-27 06:39 | History & Physical Bridge - SC ---
H&P Re-Evaluation Bridge Note: I have examined the patient, reviewed the History & Physical and in the interval since the performance of the History & Physical I have noted the following changes of clinical significance: No changes noted
--- NOTE | 2018-05-27 07:13 | [facility] Post Operative Brief Note ---
Immediate Operative Summary Operative Date May 27, 2018. Pre-Operative Diagnosis Left Knee Medial Meniscus Tear Post-Operative Diagnosis Same Procedure(s) Performed Left Knee Arthroscopy, Partial Medial Meniscectomy Surgeon Dr. Bowers End Polisher Surgeon(s) Yris Scott PA-C Estimated Blood Loss 0 mL Findings Consistent with Post-Op Diagnosis Specimens None Drains None Anesthesia Type General Complication(s) none Disposition Disposition: Recovery Room / PACU
--- NOTE | 2018-05-27 07:23 | Discharge Instructions-SurgCtr ---
Discharge Instructions Date of Service May 27, 2018. Visit Reason for Visit: Left Knee Medial Meniscus Tear Discharge Discharge Diagnosis / Problem: SAME ABOVE Discharge Goals Goal(s): Decrease discomfort, Improve function Activity Recommendations Activity Limitations: as noted below Lifting Limitations: until after follow-up appointment Exercise/Sports Limitations: until after follow-up appointment Weightbearing Status: Left weightbearing (as tolerated) Anesthesia . Post Anesthesia Instructions: If you have had General Anesthesia or IV Sedation: * Do not drive today. * Resume driving when surgeon permits. * Do not make important decisions or sign legal documents today. * Call surgeon for: 1. Temperature elevations greater than 101 degrees F. 2. Uncontrollable pain. 3. Excessive bleeding. 4. Persistent nausea and vomiting. 5. Medication intolerance (nausea, vomiting or rash). * For nausea and vomiting use only clear liquids such as: tea, soda, bouillon until nausea subsides, then gradually increase diet as tolerated. * If you have any concerns or questions, call your surgeon's office. If physician is unavailable and it is an emergency, call 911 or go to the nearest emergency room. . Instructions / Follow-Up Instructions / Follow-Up MEDICATIONS: * Resume previous medications unless instructed otherwise by your surgeon. * Always take pain medication on a full stomach or with food to avoid upset stomach. * Do not drink alcohol or drive while taking narcotics. * Ibuprofen or Tylenol may be taken if narcotic not needed. SPECIAL CARE INSTRUCTIONS: __ None _X_ Keep extremity elevated and iced x 48 hours; apply ice 20-30 minutes 8-10 times/day. May remove at night. __ Crutches __ May discard when able __ Brace/Post-op shoe __ 24 hrs/day __ Remove at night _X_ Dressing __ Maintain until seen in office, may shower with plastic over site _X_ Remove dressings in 24-48 hours and then may shower _X_ Cover incisions with band-aids after showering __ Do not remove steri-strips Call physician if chills or temperature rises above 102 degrees or pain unrelieved by prescribed pain medications. Office [phone] Diet Recommendations Home Diet: resume previous diet Procedures Procedures Performed: Left Knee Arthroscopy, Partial Medial Meniscectomy Pending Studies Studies pending at discharge: no Medical Emergencies . Who to Call and When: Medical Emergencies: If at any time you feel your situation is an emergency, please call 911 immediately. . Non-Emergent Contact Non-Emergency issues call your: Primary Care Provider . . "Provider Documentation" section prepared by Itz Scott. .
--- NOTE | 2018-05-27 08:27 | Anesthesia Progress Nt - [facility] ---
Anesthesia Post Op Note Date & Time May 27, 2018 at 08:27 Vital Signs Pain Intensity: 6 Vital Signs Past 12 Hours Date Time Temp Pulse Resp B/P (MAP) Pulse Ox O2 Delivery O2 Flow Rate FiO2 05/27/18 08:22 84 10 96 05/27/18 08:22 82 10 05/27/18 08:21 136/71 05/27/18 08:18 95 Room Air 05/27/18 08:17 82 5 05/27/18 08:17 85 5 96 05/27/18 08:16 134/72 05/27/18 08:12 86 12 140/81 98 05/27/18 08:12 86 12 05/27/18 08:07 89 20 96 05/27/18 08:07 89 20 05/27/18 08:06 117/80 05/27/18 08:03 88 13 05/27/18 08:03 87 13 95 05/27/18 08:01 125/72 05/27/18 07:59 37.1 96 Room Air 05/27/18 07:58 84 12 100 05/27/18 07:58 83 12 05/27/18 07:57 83 9 100 05/27/18 07:57 83 9 05/27/18 07:57 83 9 05/27/18 07:57 83 9 100 05/27/18 07:56 127/66 05/27/18 07:53 78 12 100 05/27/18 07:53 79 12 05/27/18 07:51 130/69 05/27/18 07:48 82 12 100 05/27/18 07:48 82 12 05/27/18 07:46 115/65 05/27/18 07:43 85 11 100 05/27/18 07:43 85 11 05/27/18 07:41 134/71 05/27/18 07:38 87 13 05/27/18 07:38 86 13 100 05/27/18 07:36 110/68 05/27/18 07:33 67 10 100 05/27/18 07:33 67 10 05/27/18 07:32 66 11 100 05/27/18 07:32 66 11 05/27/18 07:31 106/69 05/27/18 07:27 64 11 100 05/27/18 07:27 64 11 05/27/18 07:26 101/61 05/27/18 07:24 108/64 05/27/18 07:22 36.2 68 12 108/64 99 Mask 15 05/27/18 06:37 37.3 83 16 148/102 (117) 95 Room Air Notes Mental Status: alert / awake / arousable, participated in evaluation Pt Amnestic to Procedure: Yes Nausea / Vomiting: adequately controlled Pain: adequately controlled Airway Patency, RR, SpO2: stable & adequate BP & HR: stable & adequate Hydration State: stable & adequate Anesthetic Complications: no major complications apparent
--- NOTE | 2018-05-27 08:38 | OPERATIVE REPORT ---
DATE OF OPERATION: 05/27/2018 PREOPERATIVE DIAGNOSIS: Medial meniscus tear, left knee. POSTOPERATIVE DIAGNOSIS: Complex posterior horn medial meniscus tear, left knee with associated flap. PROCEDURES: Left knee arthroscopy, partial medial meniscectomy. SURGEON: Meliton Bowers MD GASTROINTESTINAL TECHNICIAN: Itz Scott PA-C. ANESTHESIOLOGIST: Cesar Jain MD. ANESTHESIA: LMA. DRAINS: None. COMPLICATIONS: None. CONDITION: Patient tolerated the procedure well and returned to recovery room in apparent satisfactory condition. INDICATIONS FOR SURGERY: Brandi is a 62-year-old female, having pain in her left knee. Physical exam, history, and MRI consistent with a medial meniscus tear. She is familiar with this procedure having had the similar one done to her right knee. Procedure, expected outcome, side effects were all explained in detail. DESCRIPTION OF PROCEDURE: Patient was taken to the OR, at which time she was placed supine on the operative table and put to sleep by the anesthesia department. Examination of her left knee was performed. Ligaments anderson, she was stable. She had full range of motion. Left knee then was prepped and draped in the usual sterile fashion for arthroscopic examination. Anteromedial and anterolateral portals were established. Examination of the knee joint was begun. She was found to have a posterior horn flap tear complex of the medial meniscus. We came in with upbiting scissors and full radius resector and trimmed it back to a stable rim. The articular surfaces looked in good shape. The ACL, lateral compartment, and patellofemoral joint were all inspected and found to be normal, no other abnormalities were noted. Knee then was copiously irrigated. All cannulas removed. Portals were closed with 4-0 nylon sutures. 30 mL of ropivacaine, 10 mg of Toradol, and 1 mL of epinephrine placed in knee joint. Placed sterile dressing of Xeroform, 4x4, ABD, Sof-Rol, and Kumar bandage and returned back to recovery room in apparent satisfactory condition. Surgical findings included a complex flap tear of the posterior horn of medial meniscus. I attest to the content of the Intraoperative Record and any orders documented therein. Any exception s are noted below.
[2018-05-27 08:49] VITALS: BP 119/77; PULSE 71; O2SAT 94
== END | disposition home or self-care (01) ==
LOC: X.SURG 06:20
PROVIDERS: ATTEND Orthopaedic Surgery
DX: S83.242A Other tear of medial meniscus, current injury, left knee, initial encounter (principal); X58.XXXA Exposure to other specified factors, initial encounter; I10 Essential (primary) hypertension; K21.9 Gastro-esophageal reflux disease without esophagitis; E78.00 Pure hypercholesterolemia, unspecified; D69.6 Thrombocytopenia, unspecified; H81.09 Meniere's disease, unspecified ear; E03.9 Hypothyroidism, unspecified; Z88.5 Allergy status to narcotic agent; Z87.442 Personal history of urinary calculi; Z90.49 Acquired absence of other specified parts of digestive tract; Z90.710 Acquired absence of both cervix and uterus

== ENCOUNTER → 2018-06-05 | Outpatient (CLI) | payer BC ==
[~2018-06-05] MED LIST changes: -ATROPINE SULFATE 0.1 MG/ML 5ML SYR IV PRN; -BUPIVACAINE 0.5 % 5 MG/1 ML PF 10ML VIAL ONE; -CEFAZOLIN 1000MG IV PUSH 7.5 ML IV SCH; -DEXAMETHASONE SOD INJ 4 MG/ML VIAL IV PRN; -DEXAMETHASONE SOD INJ 4 MG/ML VIAL ONE; -EpHEDrine SULFATE INJ 50 MG/ML AMP IV PRN; -EpINEphrine INJ 1MG/ML AMP 1 MG/ML AMP ONE; -FENTANYL CITRATE INJ 50 MCG/1 ML 2 ML VIAL IV PRN; -FENTANYL CITRATE INJ 50 MCG/1 ML 2 ML VIAL ONE; -KETOROLAC TROMETHAMINE 30 MG/ML VIAL IV. PRN; -KETOROLAC TROMETHAMINE 30 MG/ML VIAL ONE; -LABETALOL HCL IV 5 MG/ML 20ML IV PRN; -LACTATED RINGER'S 1000ML 1,000 ML IV SCH; -LIDOCAINE HCL 2% 2 ML VIAL (20MG/ML) ONE; -METOCLOPRAMIDE HCL INJ 5 MG/ML 2 ML VIAL IV PRN; -MIDAZOLAM HCL 1 MG/ML 2ML VIAL ONE; -MoRPHine SULFATE 10 MG/ML CARP/VIAL IV PRN; -ONDANSETRON INJ 2 MG/ML 2 ML VIAL IV PRN; -ONDANSETRON INJ 2 MG/ML 2 ML VIAL ONE; -OXYCODONE/ACETAMINOPHEN 5-325 TAB PO PRN; -PHENYLEPHRINE 100MCG/ML 5ML SYR IV PRN; -PROPOFOL IV EMULSION 10 MG/ML 20 ML VIAL ONE; -ROPIVACAINE 0.5% 5 MG/ML 30 ML VIAL ONE; -SODIUM CHLORIDE 0.9% 1000ML 1,000 ML IV SCH
--- NOTE | 2018-06-05 10:00 | DIAGNOSTIC IMAGING REPORT ---
ULTRASOUND L VENOUS DOPP LOWER EXT UNILAT CLINICAL HISTORY: LT LEG PAIN,SWELLING,R/O DVT COMPARISON STUDY: No previous studies for comparison. FINDINGS: Real-time and color flow Doppler imaging were performed. Flow was seen within the femoral, popliteal and calf veins with no intraluminal thrombus demonstrated. The saphenous vein is patent. There is a left popliteal cyst which has dissected into the upper calf. This extends over a length of approximately 12 cm. IMPRESSION: 1. No evidence of left lower extremity DVT 2. Left popliteal cyst which has dissected into the upper calf, extending over a length of approximately 12 cm Electronically signed by: Manuel Dalal M.D. 06/05/2018 9:59 AM Dictated Date/Time: 06/05/2018 9:58 AM
== END | disposition home or self-care (01) ==
LOC: C.ULTRBC 09:29
PROVIDERS: ATTEND Orthopaedic Surgery
DX: M79.605 Pain in left leg (principal)